=== PATIENT | female | born 1990 | race Caucasian/White ===

== ENCOUNTER 2023-12-16 07:09 | Day surgery (SDC) | payer OTHER ==
[~2023-12-16] VITALS: Ht 152.4 cm; Wt 49.9 kg
[2023-12-16] MEDS ORDERED: SIMETHICONE 40 MG/0.6 ML ML ONE (07:29)
[2023-12-16 07:42] LABS: HCG,QUAL RESULT NEGATIVE (NEGATIVE)
[2023-12-16 07:59] VITALS: O2SAT 100
[2023-12-16] MEDS: MEPERIDINE 100 MG INJ. 100 MG/ML VIAL ONE (08:04)
[2023-12-16] MEDS: MIDAZOLAM HCL 5 MG/5 ML VIAL ONE ×2 (08:04→08:16)
[2023-12-16] MEDS: DIPHENHYDRAMINE INJ 50 MG/ML VIAL ONE (08:09)
[2023-12-16] MEDS: ONDANSETRON HCL 4 MG/2 ML VIAL ONE (08:26)
[2023-12-16 13:46] VITALS: BP_SYST 118; PULSE 137; RESP 19
== END 2023-12-16 10:01 | disposition home or self-care (01) ==
LOC: SDS 07:09 → SMU 07:10 → SDS 10:01
PROVIDERS: ATTEND Internal Medicine Gastroenterology
DX: R13.10 Dysphagia, unspecified (principal); K29.50 Unspecified chronic gastritis without bleeding; R10.9 Unspecified abdominal pain; R63.4 Abnormal weight loss; F41.9 Anxiety disorder, unspecified; E78.5 Hyperlipidemia, unspecified; Z68.21 Body mass index [BMI] 21.0-21.9, adult; Z79.899 Other long term (current) drug therapy
CPT/HCPCS: 43239; 99152; 87081; 84703; 36415; 88305; 88312; 88313; G0378; J1200; J2250; J2405; J2175